=== PATIENT | male | born 1950 | race Caucasian/White ===

== ENCOUNTER 2021-10-16 09:14 | Day surgery (SDC) | payer OTHER, BC ==
[2021-10-16 10:01] VITALS: BMI 31.7
[2021-10-16 12:28] VITALS: RESP 19
[2021-10-16 13:03] VITALS: BP 123/80; PULSE 74; TEMP 97.8
== END 2021-10-16 12:50 | disposition home or self-care (01) ==
LOC: FASU-ENDO 09:14
PROVIDERS: ATTEND Internal Medicine
PROC: 0DB68ZX Excision of Stomach, Via Natural or Artificial Opening Endoscopic, Diagnostic (ICD-10-PCS; 2021-10-16)
PROC: 0DB48ZX Excision of Esophagogastric Junction, Via Natural or Artificial Opening Endoscopic, Diagnostic (ICD-10-PCS; principal; 2021-10-16 11:44)
DX: K29.50 Unspecified chronic gastritis without bleeding (principal); K21.00 Gastro-esophageal reflux disease with esophagitis, without bleeding; K21.9 Gastro-esophageal reflux disease without esophagitis
CPT/HCPCS: 87426; 88305-TC; 88342-TC; C9803-CS; U0003; U0005

== ENCOUNTER 2023-10-29 04:37 | Day surgery (SDC) | payer OTHER, BC ==
[2023-10-21 15:26] VITALS: BMI 33.6
[2023-10-29 09:47] VITALS: TEMP 98
[2023-10-29 09:50] VITALS: BP 150/81; PULSE 70; RESP 17
== END 2023-10-29 10:00 | disposition home or self-care (01) ==
LOC: JASU-ENDO 04:37
PROVIDERS: ATTEND Student in an Organized Health Care Education/Training Program
PROC: 0DB78ZX Excision of Stomach, Pylorus, Via Natural or Artificial Opening Endoscopic, Diagnostic (ICD-10-PCS; 2023-10-29)
PROC: 0DB68ZX Excision of Stomach, Via Natural or Artificial Opening Endoscopic, Diagnostic (ICD-10-PCS; 2023-10-29)
PROC: 0DB48ZX Excision of Esophagogastric Junction, Via Natural or Artificial Opening Endoscopic, Diagnostic (ICD-10-PCS; principal; 2023-10-29 08:30)
DX: K29.50 Unspecified chronic gastritis without bleeding (principal); K29.60 Other gastritis without bleeding; K22.70 Barrett's esophagus without dysplasia; K21.00 Gastro-esophageal reflux disease with esophagitis, without bleeding
CPT/HCPCS: 88305-TC; 88342-TC